=== PATIENT | female | born 1955 | race Hispanic/Latino ===

== ENCOUNTER 2022-11-04 02:29 | Emergency (ER) | payer BC, OTHER ==
[~2022-11-04] VITALS: Ht 162.6 cm; Wt 68.0 kg
[2022-11-04 03:12] LABS: BASOPHILS % (AUTO) 0.7 % (0.0-5.0); EOSINOPHILS % (AUTO) 2.2 % (0.0-8.0); LYMPHOCYTES % (AUTO) 24.9 % (21.0-51.0); MEAN CORPUSCULAR HEMOGLOBIN 31.3 pg (27.0-33.0); MEAN CORPUSCULAR HGB CONC 33.8 g/dL (32.0-36.0); MEAN CORPUSCULAR VOLUME 92.7 fL (79-99); MONOCYTES % (AUTO) 7.2 % (3.0-13.0); NEUTROPHILS % (AUTO) 64.1 % (40.0-77.0); PLATELET COUNT (AUTO) 359 K/uL (130-400); RED BLOOD CELL COUNT(AUTO) 4.53 MIL/uL (4.00-5.50); RED CELL DISTRIBUTION WIDTH 13.3 % (11.0-15.5); WHITE BLOOD COUNT (AUTO) 13.8 K/uL (4.8-10.8)
[2022-11-04 03:24] LABS: CREATININE 0.5 mg/dL (0.5-1.5); POTASSIUM 3.7 mmol/L (3.5-5.1)
[2022-11-04 03:29] LABS: TOTAL PROTEIN, SERUM 7.7 g/dL (6.0-8.3)
[2022-11-04] MEDS ORDERED: KETOROLAC 15MG/ML VIAL (15MG/ML) IM STA (04:48)
[2022-11-04] MEDS ORDERED: HYDRALAZINE 20MG/ML VIAL IV STA (04:56)
[2022-11-04] MEDS ORDERED: HYDRALAZINE 20MG/ML VIAL ONE (04:58)
[2022-11-04] MEDS ORDERED: IBUP-2070 PO (05:14)
[2022-11-04] MEDS ORDERED: CYCL10TA16 PO (05:14)
[2022-11-04 05:15] VITALS: BP 157/76
== END 2022-11-04 05:41 | disposition home or self-care (01) ==
LOC: EDH 02:29
DX: M54.89 Other dorsalgia (principal); I10 Essential (primary) hypertension; E11.9 Type 2 diabetes mellitus without complications; W07.XXXA Fall from chair, initial encounter; Y93.89 Activity, other specified; Y92.89 Other specified places as the place of occurrence of the external cause; Y99.8 Other external cause status
CPT/HCPCS: 99285; 70450; 84484; 80053; 85025; 36415; 72220; 72125; 96372; 93005; J0360; J1885